=== PATIENT | female | born 1995 | race Caucasian/White ===

== ENCOUNTER 2020-01-26 23:04 | Emergency (ER) | payer OTHER ==
[2020-01-26 23:08] VITALS: BP 118/84; PULSE 97; RESP 20; TEMP 97.7
[2020-01-26] MEDS ORDERED: IBUPROFEN 600 MG TAB PO STA (23:43)
--- NOTE | 2020-01-26 23:48 | ED ---
General Adult HPI - General Chief complaint: Fall Stated complaint: FOOT INJURY Time Seen by Provider: 01/26/20 23:06 Source: patient, RN notes reviewed, old records reviewed Mode of arrival: ambulatory Limitations: no limitations - History of Present Illness Initial comments: 24 yo presents status post trip and fall. Patient had injury to the right foot and ankle. She states she tripped on the steps while going down and stumbled. She is complaining predominantly of pain in her right heel and midfoot. As well as the medial aspect of her ankle. No other injury reported, no head neck or back trauma. No chest or abdominal pain. No pain in the right hip or knee. No other extremity injury. Injury is isolated to the right foot and ankle. - Related Data Previous Rx's Medication Instructions Recorded Cyclobenzaprine [Flexeril] 5 mg PO TID 10 Days tablet 02/05/14 Ibuprofen [Motrin] 600 mg PO Q6HR PRN #10 day 02/05/14 Ibuprofen [Motrin] 600 mg PO Q8HR PRN #24 tab 01/26/20 Allergies Allergy/AdvReac Type Severity Reaction Status Date / Time No Known Allergies Allergy Verified 01/26/20 23:08 Review of Systems ROS Statement: Those systems with pertinent positive or pertinent negative responses have been documented in the HPI. ROS Other: All systems not noted in ROS Statement are negative. Past Medical History Additional Past Medical History / Comment(s): scoliosis, History of Any Multi-Drug Resistant Organisms: None Reported Past Surgical History: Ear Surgery, Tonsillectomy Past Psychological History: No Psychological Hx Reported Smoking Status: Current every day smoker Past Alcohol Use History: None Reported Past Drug Use History: Marijuana General Exam Limitations: no limitations General appearance: alert, in no apparent distress Head exam: Present: atraumatic, normocephalic Eye exam: Present: normal appearance, PERRL ENT exam: Present: normal exam Neck exam: Present: normal inspection, tenderness Respiratory exam: Present: normal lung sounds bilaterally. Absent: respiratory distress, wheezes Cardiovascular Exam: Present: regular rate, normal rhythm Extremities exam: Present: other (Right lower extremity: No tenderness at the hip or knee, normal range of motion, pain with palpation in the mid foot, and below the medial malleolus. No tenderness on the lateral malleolus, no significant swelling or deformity. Distal pulses intact. Normal range of motion of the toes, normal sensation.) Course Vital Signs 01/26/20 23:05 Temperature 97.7 F Pulse Rate 97 Respiratory 20 Rate Blood Pressure 118/84 O2 Sat by Pulse 99 Oximetry Medical Decision Making - Medical Decision Making 24-year-old status post fall with right foot and ankle injury. X-rays performed, negative for any acute bony abnormality, no fracture or dislocation. Patient is placed in an Andre wrap, she will ice and elevate the extremity. She will take Motrin for pain. She will follow-up with her primary care physician if symptoms persist. May require repeat x-ray for occult fracture if symptoms persist. Disposition Clinical Impression: Fall, Ankle sprain Disposition: HOME SELF-CARE Condition: Good Instructions (If sedation given, give patient instructions): Ankle Sprain (ED) Prescriptions: Ibuprofen [Motrin] 600 mg PO Q8HR PRN #24 tab PRN Reason: Pain Is patient prescribed a controlled substance at d/c from ED?: No Referrals: None,Stated [Primary Care Provider] - 1-2 days Bob Wayne MD [STAFF PHYSICIAN] - 1-2 days Time of Disposition: 23:47
--- NOTE | 2020-01-27 00:04 | XR ---
EXAMINATION TYPE: XR ankle complete RT DATE OF EXAM: 01/26/2020 COMPARISON: NONE HISTORY: Pain after falling TECHNIQUE: 3 views FINDINGS: Ankle mortise is anatomic. I see no fracture nor dislocation. Joint spaces are normal. IMPRESSION: Negative right ankle exam. No fracture.
--- NOTE | 2020-01-27 00:05 | XR ---
EXAMINATION TYPE: XR foot complete RT DATE OF EXAM: 01/26/2020 COMPARISON: NONE HISTORY: Pain TECHNIQUE: 3 views FINDINGS: Metatarsals appear intact. I see no fracture nor dislocation. There are no erosions. Joint spaces appear normal. IMPRESSION: Negative right foot exam.
== END 2020-01-27 00:14 | disposition home or self-care (01) ==
LOC: EC 23:04
DX: S93.401A Sprain of unspecified ligament of right ankle, initial encounter (principal); F17.200 Nicotine dependence, unspecified, uncomplicated; W01.0XXA Fall on same level from slipping, tripping and stumbling without subsequent striking against object, initial encounter
CPT/HCPCS: 99284

== ENCOUNTER 2020-03-08 23:36 | Emergency (ER) | payer OTHER ==
[2020-03-08 23:42] VITALS: BP 127/83; PULSE 106; RESP 15
[2020-03-08 23:49] VITALS: TEMP 98.6
[2020-03-09] MEDS ORDERED: LIDOCAINE 1% INJ 10MG/ML (20 ML MDV) SQ ONE (00:08)
--- NOTE | 2020-03-09 01:16 | ED ---
Wound/Laceration HPI - General Chief Complaint: Wound/Laceration Stated Complaint: LT hand lac Time Seen by Provider: 03/08/20 23:50 Source: patient Mode of arrival: ambulatory - History of Present Illness Initial Comments: 24-year-old female patient presents to the emergency department today for evaluation of laceration to the left hand. Patient states she was cutting an avocado trying to get the pit out when the knife slipped and cut her hand. Patient states that she was having difficulty getting the bleeding stopped so she presented here for evaluation and possible stitches. She denies any numbness or tingling to the hand or finger. She denies any other injuries. She states her tetanus is up-to-date 2 years ago. Patient denies any headache, neck pain, back pain, chest pain, shortness of breath, dizziness, weakness, abdominal pain, nausea, vomiting, or difficulties with bowel movements or urination. - Related Data Previous Rx's Medication Instructions Recorded Cyclobenzaprine [Flexeril] 5 mg PO TID 10 Days tablet 02/05/14 Ibuprofen [Motrin] 600 mg PO Q6HR PRN #10 day 02/05/14 Ibuprofen [Motrin] 600 mg PO Q8HR PRN #24 tab 01/26/20 Allergies Allergy/AdvReac Type Severity Reaction Status Date / Time No Known Allergies Allergy Verified 03/08/20 23:42 Review of Systems ROS Statement: Those systems with pertinent positive or pertinent negative responses have been documented in the HPI. ROS Other: All systems not noted in ROS Statement are negative. Past Medical History Additional Past Medical History / Comment(s): scoliosis, History of Any Multi-Drug Resistant Organisms: None Reported Past Surgical History: Ear Surgery, Tonsillectomy Past Psychological History: No Psychological Hx Reported Smoking Status: Current every day smoker Past Alcohol Use History: None Reported Past Drug Use History: Marijuana General Exam General appearance: alert, in no apparent distress, other (This is a well- developed, well-nourished adult female patient in no acute distress. Vital signs upon presentation are pulse 106, respirations 15, blood pressure 127/83, pulse ox 100% on room air.) Respiratory exam: Present: normal lung sounds bilaterally. Absent: respiratory distress, wheezes, rales, rhonchi, stridor Cardiovascular Exam: Present: regular rate, normal rhythm, normal heart sounds. Absent: systolic murmur, diastolic murmur, rubs, gallop, clicks Extremities exam: Present: full ROM, normal capillary refill, other (There is 3 cm laceration noted over the lateral aspect of the second MCP joint. There is no active bleeding. There is full range of motion of the finger. Exploration of the wound reveals no foreign body, bone exposure or tendon exposure. Skin is otherwise pink, warm, dry. Cap refills less than 3 seconds. Radial pulses 2+ and equal bilaterally.). Absent: normal inspection, tenderness, pedal edema, joint swelling, calf tenderness Neurological exam: Present: alert, oriented X3, CN II-XII intact Psychiatric exam: Present: normal affect, normal mood Skin exam: Present: warm, dry, intact, normal color. Absent: rash Course Vital Signs 03/08/20 03/08/20 23:39 23:42 Temperature 98.6 F Pulse Rate 106 H Respiratory 15 Rate Blood Pressure 127/83 O2 Sat by Pulse 100 Oximetry Procedures - Laceration Laceration #1 Consent Obtained: verbal consent Indication: laceration Site: hand Size (cm): 3 Description: linear Depth: simple, single layer Anesthetic Used: lidocaine 1% Anesthesia Technique: local infiltration Amount (mls): 3 Pre-repair: irrigated extensively Type of Sutures: nylon Size of Sutures: 5-0 Number of Sutures: 3 Technique: simple, interrupted Patient Tolerated Procedure: well, no complications Medical Decision Making - Medical Decision Making 24 year-old female patient presented to the emergency department today for evaluation of laceration to the left hand. Physical examination did reveal a 3 cm laceration over the lateral aspect of the second MCP joint. This was repaired with sutures. Patient for range of motion. Neurovascular status is intact. Tetanus is up-to-date. We discussed wound care and signs or symptoms of infection. She is instructed to return in 7 days to have the stitches removed. She is instructed to follow-up with her primary care physician for recheck in 1-2 days. Return parameters were discussed in detail. She verbalizes understanding and agrees with this plan. Disposition Clinical Impression: Laceration of left hand Disposition: HOME SELF-CARE Condition: Good Instructions (If sedation given, give patient instructions): Care For Your Stitches (ED), Laceration (ED) Additional Instructions: Keep wound clean and dry. Cleanse twice daily with warm water and antibacterial soap. Return in 7 days to have the stitches removed. Monitor for signs or symptoms of infection including but not limited to redness, swelling, drainage of pus, fever, or chills. Follow-up with your primary care physician for recheck of the wound in 1-2 days. Return for any other new, worsening, or concerning symptoms. Is patient prescribed a controlled substance at d/c from ED?: No Referrals: Chaim Camilo MD [Primary Care Provider] - 1-2 days Time of Disposition: 01:16
== END 2020-03-09 01:21 | disposition home or self-care (01) ==
LOC: EC 23:36
DX: S61.412A Laceration without foreign body of left hand, initial encounter (principal); F17.200 Nicotine dependence, unspecified, uncomplicated; W26.0XXA Contact with knife, initial encounter
CPT/HCPCS: 12002; 99282

== ENCOUNTER 2020-12-06 20:03 | Emergency (ER) | payer OTHER ==
[2020-12-06 20:10] VITALS: RESP 18; TEMP 97.9
[2020-12-06] MEDS ORDERED: ASPIRIN 81 MG PO STA (20:28)
[2020-12-06 20:48] LABS: Basophils % (A) 1 %; Eosinophils # (A) 0.1 k/uL (0-0.7); Eosinophils % (A) 2 %; HCT 40.4 % (34.0-46.0); HGB 13.7 gm/dL (11.4-16.0); Lymphocytes # (A) 1.8 k/uL (1.0-4.8); Lymphocytes % (A) 33 %; MCH 31.3 pg (25.0-35.0); MCHC 33.9 g/dL (31.0-37.0); MCV 92.3 fL (80.0-100.0); Mean Platelet Volume 8.4; Monocytes # (A) 0.3 k/uL (0-1.0); Monocytes % (A) 5 %; Neutrophils # (A) 3.2 k/uL (1.3-7.7); Neutrophils % (A) 58 %; Platelet Count 132 k/uL (150-450); RBC 4.37 m/uL (3.80-5.40); RDW 11.9 % (11.5-15.5); WBC 5.5 k/uL (3.8-10.6)
[2020-12-06 20:58] LABS: ALT 12 U/L (4-34); AST 21 U/L (14-36); African American GFR (CKD) >90 (>60 ml/min/1.73 sqM); Albumin 3.9 g/dL (3.5-5.0); Alkaline Phosphatase 55 U/L (38-126); Anion Gap 8 mmol/L; Blood Urea Nitrogen 12 mg/dL (7-17); Calcium 8.5 mg/dL (8.4-10.2); Carbon Dioxide 28 mmol/L (22-30); Chloride 104 mmol/L (98-107); Glucose 106 mg/dL (74-99); Non-African American GFR(CKD) >90 (>60 ml/min/1.73 sqM); Potassium 3.2 mmol/L (3.5-5.1); Sodium 140 mmol/L (137-145); Total Bilirubin 0.3 mg/dL (0.2-1.3); Total Protein 6.5 g/dL (6.3-8.2)
[2020-12-06 21:01] LABS: Amphetamine Screen,Urine Not Detected (NotDetected); Barbiturate Screen,Urine Not Detected (NotDetected); Benzodiazepines Screen,Urine Not Detected (NotDetected); Cocaine Screen,Urine Not Detected (NotDetected); Methadone Screen, Urine Not Detected (NotDetected); Opiate Screen,Urine Not Detected (NotDetected); Oxycodone Screen, Urine Not Detected (NotDetected); Phencyclidine Screen,Urine Not Detected (NotDetected); Tricyclic Antidepressant,Urine Not Detected (NotDetected); Urn Cannabinoid Scrn Detected (NotDetected)
[2020-12-06 21:07] LABS: D-Dimer 0.33 mg/L FEU (<0.60); Prothrombin Time 10.7 sec (9.0-12.0)
--- NOTE | 2020-12-06 21:18 | XR ---
EXAMINATION TYPE: XR chest 2V DATE OF EXAM: 12/06/2020 COMPARISON: Chest x-ray December 15, 1998. HISTORY: Chest pain and shortness of breath TECHNIQUE: Frontal and lateral views of the chest are obtained. FINDINGS: There is no suspicious new focal air space opacity, pleural effusion, or pneumothorax seen . The cardiac silhouette size remains within normal limits. Underlying scoliosis is present IMPRESSION: No acute cardiopulmonary process.
--- NOTE | 2020-12-06 21:36 | ED ---
General Adult HPI - General Chief complaint: Shortness of Breath Stated complaint: SOB, chest discomfort Time Seen by Provider: 12/06/20 20:21 Source: patient Mode of arrival: ambulatory Limitations: no limitations - History of Present Illness Initial comments: 25-year-old female presenting today for chief complaint ofdyspnea and chest tightness. Patient states that this morning she has had chest tightness and some shortness of breath. Patient states she is not sure if this is because she is anxious or not. Patient denies jaw pain and arm pain and diaphoresis she denies fevers chills cough congestion she denies any leg swelling hemoptysis recent travel or immobilization or injuries. She denies any recent surgeries or cancer. Patient denies any history of DVT or pulmonary embolism. Patient denies any pain with deep inspiration. She denies any specific alleviating and aggravating factors. Patient denies any leg swelling or edema. She denies any calf pain. Patient denies hemoptysis. Patient states she threw this one other time when she was in [place]. Remaining review of systems negative upon arrival patient appears well and nontoxic no acute distress. Chest tightness improved, ongoing ~12 hours.she denies diabetes she denies hypertension she denies dyslipidemia. She states she has never day smoker. She denies any family history of coronary artery disease/MA. - Related Data Previous Rx's Medication Instructions Recorded Cyclobenzaprine [Flexeril] 5 mg PO TID 10 Days tablet 02/05/14 Ibuprofen [Motrin] 600 mg PO Q6HR PRN #10 day 02/05/14 Ibuprofen [Motrin] 600 mg PO Q8HR PRN #24 tab 01/26/20 Potassium Chloride [Klor-Con 20] 20 meq PO DAILY 1 Days #2 tab 12/06/20 Allergies Allergy/AdvReac Type Severity Reaction Status Date / Time No Known Allergies Allergy Verified 12/06/20 20:09 Review of Systems ROS Statement: Those systems with pertinent positive or pertinent negative responses have been documented in the HPI. ROS Other: All systems not noted in ROS Statement are negative. Past Medical History Additional Past Medical History / Comment(s): scoliosis, History of Any Multi-Drug Resistant Organisms: None Reported Past Surgical History: Ear Surgery, Tonsillectomy Past Psychological History: No Psychological Hx Reported Smoking Status: Current every day smoker Past Alcohol Use History: None Reported Past Drug Use History: Marijuana General Exam - General Exam Comments Initial Comments: General: The patient is awake and alert, in no distress, negative Juarez sign and no diaphoresis. Eye: +3 mm pupils are equal, round and reactive to light, extra-ocular moveme nts are intact. No nystagmus. There is normal conjunctiva bilaterally. No signs of icterus. Ears, nose, mouth and throat: There are moist mucous membranes and no oral le sions. Neck: The neck is supple, there is no tenderness or JVD. Cardiovascular: There is a regular rate and rhythm. No murmur, rub or gallop is appreciated. Respiratory: Lungs are clear to auscultation, respirations are non-labored, breath sounds are equal. No wheezes, stridor, rales, or rhonchi. Gastrointestinal: Soft, non-distended, non-tender abdomen without masses or organomegaly noted. There is no rebound or guarding present. Musculoskeletal: Normal ROM, no tenderness. Strength 5/5. Sensation intact. radial and DP pulses equal bilaterally 2+. Neurological: A&O x 3. CN II-XII intact grossly, There are no obvious motor or sensory deficits. Coordination appears grossly intact. Speech is normal. Skin: Skin is warm and dry and no rashes or lesions are noted. No calf pain, no LE edema. Psychiatric: Cooperative, appropriate mood & affect, normal judgment. Limitations: no limitations Course Vital Signs 12/06/20 12/06/20 20:06 21:50 Temperature 97.9 F Pulse Rate 103 H 70 Respiratory 18 18 Rate Blood Pressure 126/72 126/73 O2 Sat by Pulse 100 98 Oximetry Medical Decision Making - Medical Decision Making 25-year-old female presenting for slight shortness of breath chest tightness. This is ongoing greater than 12 hours. Patient's troponin negative. Patient's EKG no acute findings. Chest x-ray clear lungs clear no murmur. No extremity findings. BMP within normal limits. Patient states she does have history of a nxiety. She's unsure if this is related. I did recommend outpatient stress testing and echo otherwise at this time discussed the case with attending provider we feel patient is stable for discharge with outpatient care follow-up. - Lab Data Result diagrams: 12/06/20 20:39 12/06/20 20:39 Lab Results 12/06/20 12/06/20 12/06/20 Range/Units 20:39 20:39 20:39 WBC 5.5 (3.8-10.6) k/uL RBC 4.37 (3.80-5.40) m/uL Hgb 13.7 (11.4-16.0) gm/dL Hct 40.4 (34.0-46.0) % MCV 92.3 (80.0-100.0) fL MCH 31.3 (25.0-35.0) pg MCHC 33.9 (31.0-37.0) g/dL RDW 11.9 (11.5-15.5) % Plt Count 132 L (150-450) k/uL MPV 8.4 Neutrophils % 58 % Lymphocytes % 33 % Monocytes % 5 % Eosinophils % 2 % Basophils % 1 % Neutrophils # 3.2 (1.3-7.7) k/uL Lymphocytes # 1.8 (1.0-4.8) k/uL Monocytes # 0.3 (0-1.0) k/uL Eosinophils # 0.1 (0-0.7) k/uL Basophils # 0.0 (0-0.2) k/uL PT 10.7 (9.0-12.0) sec INR 1.0 (<1.2) APTT 24.0 (22.0-30.0) sec D-Dimer 0.33 (<0.60) mg/L FEU Sodium 140 (137-145) mmol/L Potassium 3.2 L (3.5-5.1) mmol/L Chloride 104 (98-107) mmol/L Carbon Dioxide 28 (22-30) mmol/L Anion Gap 8 mmol/L BUN 12 (7-17) mg/dL Creatinine 0.62 (0.52-1.04) mg/dL Est GFR (CKD-EPI)AfAm >90 (>60 ml/min/1.73 sqM) Est GFR (CKD-EPI)NonAf >90 (>60 ml/min/1.73 sqM) Glucose 106 H (74-99) mg/dL Calcium 8.5 (8.4-10.2) mg/dL Magnesium 2.0 (1.6-2.3) mg/dL Total Bilirubin 0.3 (0.2-1.3) mg/dL AST 21 (14-36) U/L ALT 12 (4-34) U/L Alkaline Phosphatase 55 (38-126) U/L Troponin I (0.000-0.034) ng/mL NT-Pro-B Natriuret Pep pg/mL Total Protein 6.5 (6.3-8.2) g/dL Albumin 3.9 (3.5-5.0) g/dL Urine HCG, Qual (Not Detectd) Urine Opiates Screen (NotDetected) Ur Oxycodone Screen (NotDetected) Urine Methadone Screen (NotDetected) Ur Propoxyphene Screen (NotDetected) Ur Barbiturates Screen (NotDetected) U Tricyclic Antidepress (NotDetected) Ur Phencyclidine Scrn (NotDetected) Ur Amphetamines Screen (NotDetected) U Methamphetamines Scrn (NotDetected) U Benzodiazepines Scrn (NotDetected) Urine Cocaine Screen (NotDetected) U Marijuana (THC) Screen (NotDetected) 12/06/20 12/06/20 12/06/20 Range/Units 20:39 20:39 20:39 WBC (3.8-10.6) k/uL RBC (3.80-5.40) m/uL Hgb (11.4-16.0) gm/dL Hct (34.0-46.0) % MCV (80.0-100.0) fL MCH (25.0-35.0) pg MCHC (31.0-37.0) g/dL RDW (11.5-15.5) % Plt Count (150-450) k/uL MPV Neutrophils % % Lymphocytes % % Monocytes % % Eosinophils % % Basophils % % Neutrophils # (1.3-7.7) k/uL Lymphocytes # (1.0-4.8) k/uL Monocytes # (0-1.0) k/uL Eosinophils # (0-0.7) k/uL Basophils # (0-0.2) k/uL PT (9.0-12.0) sec INR (<1.2) APTT (22.0-30.0) sec D-Dimer (<0.60) mg/L FEU Sodium (137-145) mmol/L Potassium (3.5-5.1) mmol/L Chloride (98-107) mmol/L Carbon Dioxide (22-30) mmol/L Anion Gap mmol/L BUN (7-17) mg/dL Creatinine (0.52-1.04) mg/dL Est GFR (CKD-EPI)AfAm (>60 ml/min/1.73 sqM) Est GFR (CKD-EPI)NonAf (>60 ml/min/1.73 sqM) Glucose (74-99) mg/dL Calcium (8.4-10.2) mg/dL Magnesium (1.6-2.3) mg/dL Total Bilirubin (0.2-1.3) mg/dL AST (14-36) U/L ALT (4-34) U/L Alkaline Phosphatase (38-126) U/L Troponin I <0.012 (0.000-0.034) ng/mL NT-Pro-B Natriuret Pep 83 pg/mL Total Protein (6.3-8.2) g/dL Albumin (3.5-5.0) g/dL Urine HCG, Qual Not Detected (Not Detectd) Urine Opiates Screen (NotDetected) Ur Oxycodone Screen (NotDetected) Urine Methadone Screen (NotDetected) Ur Propoxyphene Screen (NotDetected) Ur Barbiturates Screen (NotDetected) U Tricyclic Antidepress (NotDetected) Ur Phencyclidine Scrn (NotDetected) Ur Amphetamines Screen (NotDetected) U Methamphetamines Scrn (NotDetected) U Benzodiazepines Scrn (NotDetected) Urine Cocaine Screen (NotDetected) U Marijuana (THC) Screen (NotDetected) 12/06/20 Range/Units 20:39 WBC (3.8-10.6) k/uL RBC (3.80-5.40) m/uL Hgb (11.4-16.0) gm/dL Hct (34.0-46.0) % MCV (80.0-100.0) fL MCH (25.0-35.0) pg MCHC (31.0-37.0) g/dL RDW (11.5-15.5) % Plt Count (150-450) k/uL MPV Neutrophils % % Lymphocytes % % Monocytes % % Eosinophils % % Basophils % % Neutrophils # (1.3-7.7) k/uL Lymphocytes # (1.0-4.8) k/uL Monocytes # (0-1.0) k/uL Eosinophils # (0-0.7) k/uL Basophils # (0-0.2) k/uL PT (9.0-12.0) sec INR (<1.2) APTT (22.0-30.0) sec D-Dimer (<0.60) mg/L FEU Sodium (137-145) mmol/L Potassium (3.5-5.1) mmol/L Chloride (98-107) mmol/L Carbon Dioxide (22-30) mmol/L Anion Gap mmol/L BUN (7-17) mg/dL Creatinine (0.52-1.04) mg/dL Est GFR (CKD-EPI)AfAm (>60 ml/min/1.73 sqM) Est GFR (CKD-EPI)NonAf (>60 ml/min/1.73 sqM) Glucose (74-99) mg/dL Calcium (8.4-10.2) mg/dL Magnesium (1.6-2.3) mg/dL Total Bilirubin (0.2-1.3) mg/dL AST (14-36) U/L ALT (4-34) U/L Alkaline Phosphatase (38-126) U/L Troponin I (0.000-0.034) ng/mL NT-Pro-B Natriuret Pep pg/mL Total Protein (6.3-8.2) g/dL Albumin (3.5-5.0) g/dL Urine HCG, Qual (Not Detectd) Urine Opiates Screen Not Detected (NotDetected) Ur Oxycodone Screen Not Detected (NotDetected) Urine Methadone Screen Not Detected (NotDetected) Ur Propoxyphene Screen Not Detected (NotDetected) Ur Barbiturates Screen Not Detected (NotDetected) U Tricyclic Antidepress Not Detected (NotDetected) Ur Phencyclidine Scrn Not Detected (NotDetected) Ur Amphetamines Screen Not Detected (NotDetected) U Methamphetamines Scrn Not Detected (NotDetected) U Benzodiazepines Scrn Not Detected (NotDetected) Urine Cocaine Screen Not Detected (NotDetected) U Marijuana (THC) Screen Detected H (NotDetected) Disposition Clinical Impression: Chest discomfort, Dyspnea Disposition: HOME SELF-CARE Condition: Good Instructions (If sedation given, give patient instructions): Chest Pain (ED), Chest Pain (DC) Additional Instructions: Please use medication as discussed. Please follow-up with family doctor in the next 2 days, recommend outpatient stress testing/echo. Please return to emergency room if the symptoms increase or worsen or for any other concerns. Is patient prescribed a controlled substance at d/c from ED?: No Referrals: Chaim Camilo MD [Primary Care Provider] - 1-2 days Time of Disposition: 21:36
[2020-12-06 21:51] VITALS: BP 126/73; PULSE 70
== END 2020-12-06 21:51 | disposition home or self-care (01) ==
LOC: EC 20:03
DX: R07.89 Other chest pain (principal); F17.200 Nicotine dependence, unspecified, uncomplicated; R06.00 Dyspnea, unspecified; Z90.09 Acquired absence of other part of head and neck; F12.90 Cannabis use, unspecified, uncomplicated
CPT/HCPCS: 36415; 71046; 80053; 80306; 81025; 83735; 83880; 84484; 85025; 85379; 85610; 85730; 93005; 99285